=== PATIENT | female | born 1945 | race Asian ===

== ENCOUNTER 2019-03-19 10:33 | Emergency (ER) | payer MEDICARE, OTHER ==
--- NOTE | 2019-03-19 11:03 | ER Document Report ---
ED Medical Screen (RME) - General Chief Complaint: Low Blood Sugar Stated Complaint: BLOOD SUGAR ISSUES Time Seen by Provider: 03/19/19 10:52 Primary Care Provider: RAFIA EL NP [Primary Care Provider] - Follow up as needed Mode of Arrival: Ambulatory Information source: Patient TRAVEL OUTSIDE OF THE [place] IN LAST 30 DAYS: No - HPI Notes: 03/19/19 10:59 Patient is a 73 yr old female. type 1 diabetic on insulin therapy that presents to the emergency department for chief complaint of hypoglycemic episodes, states blood sugar this morning was 27, states that he gave her breakfast of eggs and sausage and she had eaten it. Patient states yesterday she had a blood sugar of 24, EMS was called, IV therapy was initiated, patient was given glucose which brought up her sugar to normal levels, patient was not seen in the ER after this episode. Has is not sure how many units she has headaches, states last night she ate a light lunch. Denies any fevers or chills, recent cough, dysuria abdominal pain, nausea vomiting or diarrhea. Patient has been a longtime type I diabetic, is unsure why her sugars have been stable lately ROS: Other than noted above, the 12 point review of systems was reviewed with the patient and were negative, all pertinent findings are included in the HPI. PHYSICAL EXAMINATION: Vital signs reviewed. GENERAL: Well-appearing, well-nourished and in no acute distress. LUNGS: No respiratory distress ABD: generalized abd pain Musculoskeletal: Normal range of motion NEUROLOGICAL: Normal speech PSYCH: Normal mood, normal affect. MDM: Patient seen and examined for rapid initial assessment. Vital signs reviewed. A comprehensive ED assessment and evaluation of the patient, analysis of test results and completion of the medical decision making process will be conducted by additional ED providers. *Note is created using voice recognition software and may contain spelling, s yntax or grammatical errors. - Related Data Allergies/Adverse Reactions: Penicillins Allergy (Verified 03/19/19 10:38) Past Medical History - Past Medical History Cardiac Medical History: Reports: Hx Hypertension Endocrine Medical History: Reports: Hx Diabetes Mellitus Type 2 Doctor's Discharge - Discharge Referrals: RAFIA EL NP [Primary Care Provider] - Follow up as needed
[2019-03-19] MEDS ORDERED: DEXTROSE 40% GEL 15 GM TUBE PO ONE (11:15)
[2019-03-19 11:32] LABS: HEMOGLOBIN 13.4 g/dL (12.0-15.5); MEAN CORPUSCULAR HEMOGLOBIN 31.1 pg (27.0-33.4); MEAN CORPUSCULAR HGB CONC 33.5 g/dL (32.0-36.0); MEAN CORPUSCULAR VOLUME 93 fl (80-97); PLATELET COUNT 256 10^3/uL (150-450); RED CELL DISTRIBUTION WIDTH 13.4 % (11.5-14.0); WHITE BLOOD COUNT 9.6 10^3/uL (4.0-10.5)
[2019-03-19 11:37] LABS: APPEARANCE,URINE SLIGHTLY-CLOUDY; BILIRUBIN,URINE NEGATIVE (NEGATIVE); COLOR,URINE YELLOW; GLUCOSE, URINE NEGATIVE (NEGATIVE); KETONES,URINE NEGATIVE (NEGATIVE); LEUKOCYTE ESTERASE,URINE MODERATE (NEGATIVE); NITRITE,URINE NEGATIVE (NEGATIVE); PROTEIN,URINE 100 mg/dL (NEGATIVE); UROBILINOGEN,URINE NEGATIVE mg/dL (<2.0)
[2019-03-19 11:51] LABS: ALANINE AMINOTRANSFERASE 42 U/L (9-52); ALKALINE PHOSPHATASE 93 U/L (38-126); ANION GAP 15 (5-19); ASPARTATE AMINO TRANSFERASE 53 U/L (14-36); BILIRUBIN,DIRECT 0.3 mg/dL (0.0-0.4); BILIRUBIN,TOTAL 0.5 mg/dL (0.2-1.3); BLOOD UREA NITROGEN 25 mg/dL (7-20); CALCIUM 9.8 mg/dL (8.4-10.2); CARBON DIOXIDE 25 mmol/L (22-30); CHLORIDE 104 mmol/L (98-107); CREATINE KINASE 147 U/L (30-135); POTASSIUM 5.3 mmol/L (3.6-5.0); SODIUM 143.6 mmol/L (137-145); TOTAL PROTEIN 9.4 g/dL (6.3-8.2)
[2019-03-19 11:56] LABS: GLUCOSE 61 mg/dL (75-110)
[2019-03-19 12:03] LABS: CREATINE KINASE MB 1.66 ng/mL (<4.55); TROPONIN I 0.013 ng/mL
--- NOTE | 2019-03-19 12:25 | RADIOLOGY REPORT (SQ) ---
EXAM DESCRIPTION: CHEST 2 VIEWS COMPLETED DATE/TIME: 03/19/2019 12:13 pm REASON FOR STUDY: hypoglycemia COMPARISON: CT angio chest 03/02/2016 Two-view chest 03/01/2016 EXAM PARAMETERS: NUMBER OF VIEWS: two views TECHNIQUE: Digital Frontal and Lateral radiographic views of the chest acquired. RADIATION DOSE: NA LIMITATIONS: none FINDINGS: LUNGS AND PLEURA: No opacities, masses or pneumothorax. No pleural effusion. MEDIASTINUM AND HILAR STRUCTURES: No masses or contour abnormalities. HEART AND VASCULAR STRUCTURES: Heart normal size. No evidence for failure. BONES: No acute findings. HARDWARE: None in the chest. OTHER: No other significant finding. IMPRESSION: NO ACUTE RADIOGRAPHIC FINDING IN THE CHEST. TECHNICAL DOCUMENTATION: JOB ID: [id number] Email Data Source- All Rights Reserved Reading location - IP/workstation name: [email or web address]
[2019-03-19] MEDS ORDERED: CEFTRIAXONE 1 GM/D5W RTU 1 GM/50 ML RTUPB IV ONE (12:32)
--- NOTE | 2019-03-19 13:57 | ER Document Report ---
ED Blood Sugar Problem - General Chief Complaint: Low Blood Sugar Stated Complaint: BLOOD SUGAR ISSUES Time Seen by Provider: 03/19/19 10:52 Primary Care Provider: RAFIA EL NP [Primary Care Provider] - Follow up as needed Mode of Arrival: Ambulatory Notes: Patient says that early yesterday morning the patient was gurgling in her sleep. She was unresponsive to his efforts to awaken her. He felt her left face drooped. EMS was called to the scene and found her blood sugar to be 22. She was given glucose and she was okay all day yesterday. Went to bed last night about 11 PM and she was fine, and her blood sugar was 120. Early this morning, patient's blood sugar was once again low at 27. Patient is an insulin- dependent diabetic taking 24 units of Lantus insulin at 6 PM every evening. She is also on Janumet and glimepiride 4 mg daily. Patient has not had any change in her medications recently. She has not had any change in her activity level recently. She has not been sick in any way. No UTI symptoms. No fevers or chills. Does not have any current symptoms. Is ambulatory without any problems. TRAVEL OUTSIDE OF THE [place] IN LAST 30 DAYS: No - Related Data Allergies/Adverse Reactions: Penicillins Allergy (Verified 03/19/19 10:38) Past Medical History - General Information source: Patient - Social History Smoking Status: Never Smoker Chew tobacco use (# tins/day): No Drug Abuse: None Family History: Reviewed & Not Pertinent Patient has suicidal ideation: No Patient has homicidal ideation: No - Past Medical History Cardiac Medical History: Reports: Hx Hypercholesterolemia, Hx Hypertension Endocrine Medical History: Reports: Hx Diabetes Mellitus Type 1 Review of Systems - Review of Systems Notes: CONSTITUTIONAL : Denies fever. CARDIOVASCULAR: Denies chest pain. RESPIRATORY: Denies cough, chest congestion, or shortness of breath. GASTROINTESTINAL: Denies abdominal pain or nausea, vomiting, or diarrhea. GENITOURINARY: Denies difficulty or painful urinating, urinary frequency, blood in urine. Physical Exam - Vital signs Vitals: Temp Pulse Resp BP Pulse Ox 97.5 F 52 L 16 172/48 H 97 03/19/19 10:48 03/19/19 10:48 03/19/19 10:48 03/19/19 10:48 03/19/19 10:48 Interpretation: Normal Notes: PHYSICAL EXAMINATION: GENERAL: Well-appearing, no acute distress. HEAD: Atraumatic, normocephalic. NECK: Normal range of motion, supple. LUNGS: Breath sounds clear and equal bilaterally. HEART: Regular rate and rhythm without murmurs heard. ABDOMEN: Soft, nontender. No guarding or rebound or masses felt. Course - Re-evaluation Re-evalutation: 03/20/19 18:45 Patient's urine looks suspicious for UTI, although she has no clinical symptoms. I am going to treat her empirically and culture her urine. 03/20/19 18:46 Patient remained stable throughout her stay in the department. She was able to ambulate without any problems. Went to the restroom. Acting completely normal for her, according to her . We discussed treating her hypoglycemic episodes by reducing her Lantus from the 24 units twice a day to 20 units twice a day. She is to continue her Janumet and Glimeperide. - Vital Signs Vital signs: Temp Pulse Resp BP Pulse Ox 98.2 F 83 16 139/55 H 97 03/19/19 14:18 03/19/19 14:18 03/19/19 14:18 03/19/19 14:18 03/19/19 14:18 - Laboratory Result Diagrams: 03/19/19 11:13 03/19/19 11:13 Laboratory results interpreted by me: 03/19/19 03/19/19 03/19/19 11:08 11:13 11:13 Potassium 5.3 H BUN 25 H Est GFR (Non-Af Amer) 50 L Glucose 61 L POC Glucose 60 L AST 53 H Creatine Kinase 147 H Total Protein 9.4 H Urine Protein 100 H Ur Leukocyte Esterase MODERATE H Discharge - Discharge Clinical Impression: Hypoglycemia, UTI (urinary tract infection) Condition: Good Disposition: HOME, SELF-CARE Additional Instructions: Hypoglycemia You have suffered an episode of hypoglycemia (low blood sugar). Typical symptoms of hypoglycemia are shaking, sweating, headache, and confusion. When severe, unconsciousness or seizure may occur. Hypoglycemia occurs when a person taking insulin or diabetes pills has a change in the amount of blood sugar available -- due to exercise, decreased food intake, or alcohol. Should you feel symptoms of hypoglycemia again, immediately take some form of sugar such as sweetened juice. As the reaction subsides, eat a complex carbohydrate such as bread. If possible, check your blood sugar using a chemical strip. If episodes are occurring without obvious explanation, contact your physician for further evaluation. URINARY TRACT INFECTION: Your evaluation indicates that you may have a urinary tract infection. This is due to germs growing in the bladder. This is a common problem. This infection usually responds quickly to antibiotics. Your antibiotic should be taken exactly as prescribed. Drink plenty of fluids -- three to four quarts a day. Occasionally, a bladder anesthetic will be prescribed to help stop the feeling of urgency until the antibiotic has a chance to clear the infection. This may cause your urine to be dark orange. Certain urine infections require a culture. If the doctor obtained a culture, the results will be back in two days. You should call to see if a change in treatment is needed. A repeat urinalysis after you finish treatment is often recommended. The physician will let you know if further testing is required. Call the doctor if you develop fever, chills, flank pain, inability to urinate, or blood in the urine. ANTIBIOTIC THERAPY: You have been given an antibiotic prescription. It's important that you take all the medication, unless instructed otherwise by your physician. Failure to complete the entire course can result in relapse of your condition. Common side effects of antibiotics include nausea, intestinal cramping, or diarrhea. Women may develop vaginal yeast infections, and babies can get yeast (thrush) in the mouth following the use of antibiotics. Contact your physician if you develop significant side effects from this medication. Allergy to this antibiotic can result in hives, wheezing, faintness, or itching. If symptoms of allergy occur, stop the medication and call the doctor. NITROFURANTOIN (MACRODANTIN, MACROBID): You have received a prescription for nitrofurantoin (Macrodantin). This antibiotic is used for urinary tract infections. Women who are or nursing should notify the physician before taking this medicine. If you have ever had a problem caused by this medication in the past, be sure the physician is aware of it. Common side effects of this medicine include nausea, vomiting, or decreased appetite. Notify your physician if these side effects become severe. Immediately stop this medicine and call the physician if you develop cough, shortness of breath, chest pain, weakness, jaundice (yellow color of the skin and whites of the eyes), or a skin rash. FOLLOW-UP CARE: If you have been referred to a physician for follow-up care, call the physicians office for an appointment as you were instructed or within the next two days. If you experience worsening or a significant change in your symptoms, notify the physician immediately or return to the Emergency Department at any time for re-evaluation. Decrease your Lantus dose to 20 units at 6 PM. You may adjust your Lantus insulin up or down depending on what your fingerstick blood sugars are showing. Fill the prescription for the antibiotic and take it twice a day until finished. Call Ms. Melendez's office Sunday for further instructions regarding your insulin. Prescriptions: Nitrofurantoin/Nitrofuran Mac [Macrobid 100 mg Capsule] 1 tab PO BID #14 capsule Referrals: RAFIA EL NP [Primary Care Provider] - Follow up as needed
[2019-03-19 14:19] VITALS: BP 139/55
--- NOTE | 2019-03-19 17:53 | EKG REPORT ---
SEVERITY:- NORMAL ECG - SINUS RHYTHM : Confirmed by: Mary De 19-Mar-2019 17:52:38
== END 2019-03-19 14:19 | disposition home or self-care (01) ==
LOC: ER 10:33
DX: E10.649 Type 1 diabetes mellitus with hypoglycemia without coma (principal); N39.0 Urinary tract infection, site not specified; I10 Essential (primary) hypertension; Z79.4 Long term (current) use of insulin
CPT/HCPCS: 93005; 99285; 36415; 87086; 82553; 82962; 82550; 85027; 87088; 80053; 81001; 84484; 87186; 71046; 93010; J0696

== ENCOUNTER 2020-02-24 05:57 | Emergency (ER) | payer MEDICARE, OTHER ==
[2020-02-24] MEDS ORDERED: IPRATROPIUM/ALBUTEROL 0.5-2.5 MG/3 ML AMPUL NEB ONE ×2 (06:06→06:10)
[2020-02-24] MEDS ORDERED: METHYLPREDNISOLONE INJ 125 MG/2 ML SDV ONE (06:07)
--- NOTE | 2020-02-24 06:10 | ER Document Report ---
ED General - General Chief Complaint: Chest Pain Stated Complaint: SHORT OF BREATH Time Seen by Provider: 02/24/20 06:09 Primary Care Provider: RAFIA EL NP [Primary Care Provider] - Follow up as needed Mode of Arrival: Ambulatory Information source: Patient TRAVEL OUTSIDE OF THE [place] IN LAST 30 DAYS: No - HPI Onset: Other - over the last 5 days Onset/Duration: Gradual Quality of pain: Pressure - in chest Severity: Moderate Pain Level: 2 Associated symptoms: Chest pain, Nonproductive cough, Diarrhea - this morning, Shortness of breath Exacerbated by: Other - exertion Relieved by: Remaining still Similar symptoms previously: No Recently seen / treated by doctor: No Notes: 74 year old female with a history of HTN, HLD, DM here in the ER for chest pain and shortness of breath for the last 5 days. The patient denies recent fevers, chills, sweats, nausea, vomiting, but she did have some diarrhea this morning. The patient has never felt like this before. The patient denies a history of any lung problems and she has never smoked. Patient denies known sick contacts or recent travel. The patient was noted to be wheezing on ER arrival so albuterol was administered before I evaluated the patient. Patient says she felt better after having albuterol and she could breath better. - Related Data Allergies/Adverse Reactions: Penicillins Allergy (Verified 03/19/19 10:38) Past Medical History - General Information source: Patient - Social History Smoking Status: Never Smoker Frequency of alcohol use: None Drug Abuse: None Lives with: Spouse/Significant other Family History: Reviewed & Not Pertinent - Past Medical History Cardiac Medical History: Reports: Hx Hypercholesterolemia, Hx Hypertension Endocrine Medical History: Reports: Hx Diabetes Mellitus Type 1, Hx Diabetes Mellitus Type 2 Renal/ Medical History: Denies: Hx Peritoneal Dialysis Review of Systems - Review of Systems Constitutional: No symptoms reported EENT: No symptoms reported Cardiovascular: Chest pain Respiratory: Cough, Short of breath Gastrointestinal: Diarrhea Genitourinary: No symptoms reported Female Genitourinary: No symptoms reported Musculoskeletal: No symptoms reported Skin: No symptoms reported Hematologic/Lymphatic: No symptoms reported Neurological/Psychological: No symptoms reported -: Yes All other systems reviewed and negative Physical Exam - Vital signs Vitals: Pulse Ox 92 02/24/20 06:06 - Notes Notes: GENERAL: Well-appearing, well-nourished and in no acute distress. HEAD: Atraumatic, normocephalic. EYES: Pupils equal round and reactive to light, extraocular movements intact, sclera anicteric, conjunctiva are normal. ENT: External ears normal, nares patent, oropharynx clear without exudates. Moist mucous membranes. NECK: Normal range of motion, supple without lymphadenopathy or JVD. LUNGS: Patient with mild labored breathing. Breath sounds clear to auscultation bilaterally and equal. No rhonchi. HEART: Tachycardic with regular rhythm without murmurs, rubs or gallops. ABDOMEN: Soft, nontender, normoactive bowel sounds. No guarding, no rebound. N o masses appreciated. EXTREMITIES: Normal range of motion, no pitting or edema. No clubbing or cyan osis. NEUROLOGICAL: Cranial nerves II through XII grossly intact. Normal speech, normal gait. PSYCH: Normal mood, normal affect. SKIN: Warm, Dry, normal turgor, no rashes or lesions noted. Course - Re-evaluation Re-evalutation: 02/24/20 06:39 The patient is hypoxic with new onset of shortness of breath and chest pain. Chest Xray shows mild diffuse disease with no focal infiltrates. Patient is afebrile here in the ER and she denies being febrile at home. Patient has been having chest pain. Will test for COVID19 but will also need to rule out ACS, CHF, PE. Patient will need admission due to her hypoxia regardless of the cause. 02/24/20 07:29 The patient seems to be having an NSTEMI as her Trop is 0.3 and her BNP is 1500 with a corresponding chest Xray consistent with pulmonary edema. Patient is feeling much better after a nebulizer and she is now on nasal canula O2 and has only 2/10 chest pain. Will start patient on Heparin and administer aspirin and IV Lasix. Patient sees Dr. Bonilla of Cardiology. Patient would prefer to be transferred to [facility] since her PCP and affiliated with [facility]. 02/24/20 08:20 The patient was accepted by Dr. Latif at [facility]. Dr. Poole of Cardiology was also spoken to regarding the patient. - Vital Signs Vital signs: Temp Pulse Resp BP Pulse Ox 97.7 F 22 H 151/79 H 96 02/24/20 06:18 02/24/20 07:30 02/24/20 07:30 02/24/20 07:01 - Laboratory Result Diagrams: 02/24/20 06:25 02/24/20 06:25 Laboratory results interpreted by me: 02/24/20 02/24/20 06:25 06:25 BUN 23 H Est GFR (MDRD) Non-Af 58 L Glucose 204 H NT-Pro-B Natriuret Pep 1500 H - Diagnostic Test Radiology reviewed: Image reviewed, Reports reviewed - EKG Interpretation by Me EKG shows normal: Sinus rhythm, [place], Intervals, QRS Complexes Rate: Tachycardia Additional EKG results interpreted by me: 02/24/20 06:26 q waves in V1-V3 Discharge - Discharge Clinical Impression: NSTEMI (non-ST elevated myocardial infarction) Chest pain Qualifiers: Chest pain type: unspecified Qualified Code(s): R07.9 - Chest pain, unspecified Condition: Fair Disposition: [facility] Admitting Provider: Dr. Latif Referrals: RAFIA EL NP [Primary Care Provider] - Follow up as needed
[2020-02-24 06:38] LABS: ABSOLUTE BASOPHILS # (AUTO) 0.1 10^3/uL (0.0-0.2); ABSOLUTE EOSINOPHILS # (AUTO) 0.2 10^3/uL (0.0-0.6); ABSOLUTE LYMPHOCYTES (AUTO) 2.3 10^3/uL (0.5-4.7); ABSOLUTE MONOCYTES (AUTO) 0.4 10^3/uL (0.1-1.4); ABSOLUTE NEUT (AUTO) 5.9 10^3/uL (1.7-8.2); EOSINOPHILS % (AUTO) 2.6 % (0-6); HEMATOCRIT 40.2 % (36.0-47.0); HEMOGLOBIN 13.3 g/dL (12.0-15.5); LYMPHOCYTES % (AUTO) 25.9 % (13-45); MEAN CORPUSCULAR HEMOGLOBIN 30.7 pg (27.0-33.4); MEAN CORPUSCULAR HGB CONC 33.2 g/dL (32.0-36.0); MEAN CORPUSCULAR VOLUME 93 fl (80-97); MONOCYTES % (AUTO) 4.2 % (3-13); PLATELET COUNT 203 10^3/uL (150-450); RED BLOOD COUNT 4.35 10^6/uL (3.72-5.28); RED CELL DISTRIBUTION WIDTH 13.9 % (11.5-14.0); SEGMENTED NEUTROPHILS % (AUTO) 66.3 % (42-78); TOTAL CELLS COUNTED % (AUTO) 100 %; WHITE BLOOD COUNT 8.9 10^3/uL (4.0-10.5)
--- NOTE | 2020-02-24 06:54 | RADIOLOGY REPORT (SQ) ---
EXAM DESCRIPTION: XR CHEST 1 VIEW COMPLETED DATE/TME: 02/24/2020 06:05 CLINICAL HISTORY: 74 years, Female, sob COMPARISON: 03/01/2016 chest NUMBER OF VIEWS: 1 TECHNIQUE: Portable chest LIMITATIONS: None. FINDINGS: Heart size is normal. Coarsened interstitial changes are present bilaterally. Mild elevation of the right hemidiaphragm. Patchy right perihilar airspace opacity. No pneumothorax IMPRESSION: Coarse interstitial changes bilaterally with superimposed right perihilar airspace opacity. Findings may reflect pulmonary edema and/or pneumonitis copyright 2011 [employer]- All Rights Reserved
[2020-02-24 07:01] LABS: ALBUMIN 4.6 g/dL (3.5-5.0); ALKALINE PHOSPHATASE 78 U/L (38-126); ANION GAP 14 (5-19); ASPARTATE AMINO TRANSFERASE 29 U/L (14-36); BILIRUBIN,TOTAL 0.5 mg/dL (0.2-1.3); BLOOD UREA NITROGEN 23 mg/dL (7-20); CALCIUM 9.8 mg/dL (8.4-10.2); CARBON DIOXIDE 23 mmol/L (22-30); CHLORIDE 103 mmol/L (98-107); GLUCOSE 204 mg/dL (75-110); POTASSIUM 4.6 mmol/L (3.6-5.0)
[2020-02-24 07:17] LABS: TROPONIN I 0.327 ng/mL
[2020-02-24] MEDS ORDERED: ASPIRIN 81 MG TABLET, CHEWABLE PO ONE (07:20)
[2020-02-24] MEDS ORDERED: HEPARIN SODIUM,PORCINE/D5W 25,000 UNIT/250 ML RTUINJ IV PRN (07:21)
[2020-02-24] MEDS ORDERED: HEPARIN SOD (PORCINE) 1,000 UNIT/ML 10 ML VIAL IV ONE (07:21)
[2020-02-24] MEDS ORDERED: FUROSEMIDE INJ/PF 20 MG/2 ML SDV IV ONE (07:30)
[2020-02-24 07:39] LABS: INTERNATIONAL RATION (INR) 0.93; PROTHROMBIN TIME 12.4 SEC (11.4-15.4)
[2020-02-24 07:40] LABS: PARTIAL THROMBOPLASTIN TIME 25.4 SEC (23.5-35.8)
[2020-02-24 08:40] LABS: APPEARANCE,URINE CLEAR; BILIRUBIN,URINE NEGATIVE (NEGATIVE); COLOR,URINE STRAW; GLUCOSE, URINE 50 mg/dL (NEGATIVE); KETONES,URINE NEGATIVE (NEGATIVE); LEUKOCYTE ESTERASE,URINE NEGATIVE (NEGATIVE); NITRITE,URINE NEGATIVE (NEGATIVE); PROTEIN,URINE 100 mg/dL (NEGATIVE); URINE SPECIFIC GRAVITY 1.011; UROBILINOGEN,URINE NEGATIVE mg/dL (<2.0)
--- NOTE | 2020-02-24 09:30 | EKG REPORT ---
SEVERITY:- ABNORMAL ECG - SINUS TACHYCARDIA CONSIDER ANTEROSEPTAL INFARCT REPOL ABNRM SUGGESTS ISCHEMIA, LATERAL LEADS : Confirmed by: Olena Ashford MD 24-Feb-2020 09:29:26
--- NOTE | 2020-02-24 09:30 | EKG REPORT ---
SEVERITY:- ABNORMAL ECG - SINUS TACHYCARDIA PAIRED VENTRICULAR PREMATURE COMPLEXES PROBABLE LEFT ATRIAL ABNORMALITY CONSIDER ANTEROSEPTAL INFARCT REPOL ABNRM SUGGESTS ISCHEMIA, LATERAL LEADS : Confirmed by: Olena Ashford MD 24-Feb-2020 09:29:37
[2020-02-24] MEDS ORDERED: HEPARIN SOD (PORCINE) 1,000 UNIT/ML 10 ML VIAL IV PRN (10:21)
[2020-02-24 11:12] VITALS: BP 124/78
== END 2020-02-24 11:30 | disposition short-term general hospital (02) ==
LOC: ER 05:57
DX: I21.4 Non-ST elevation (NSTEMI) myocardial infarction (principal); R07.9 Chest pain, unspecified; R05 Cough; R19.7 Diarrhea, unspecified; R06.02 Shortness of breath; R06.2 Wheezing; I10 Essential (primary) hypertension; E11.9 Type 2 diabetes mellitus without complications; Z88.0 Allergy status to penicillin; Z20.828 Contact with and (suspected) exposure to other viral communicable diseases
CPT/HCPCS: 93005; 96376; 99285; 96375; 96365; 96366; 36415; 83735; 85025; 85610; 85730; 80053; 81001; 84484; 83880; 71045; 93010; U0003; J1644 ×2; A9270 ×2; J1940; C9803; 87635; J7620

== ENCOUNTER 2020-03-14 12:25 | Emergency (ER) | payer MEDICARE, OTHER ==
--- NOTE | 2020-03-14 13:26 | RADIOLOGY REPORT (SQ) ---
EXAM DESCRIPTION: CHEST SINGLE VIEW IMAGES COMPLETED DATE/TIME: 03/14/2020 1:15 pm REASON FOR STUDY: bed 4 chest pain COMPARISON: Chest x-ray 02/24/2020, 03/19/2019. EXAM PARAMETERS: NUMBER OF VIEWS: One view. TECHNIQUE: Single frontal radiographic view of the chest acquired. RADIATION DOSE: NA LIMITATIONS: None. FINDINGS: LUNGS AND PLEURA: There are small bilateral pleural effusions with mild bibasilar atelecta sis. No pneumothorax. There is subsegmental atelectasis at the left perihilar region. MEDIASTINUM AND HILAR STRUCTURES: No masses. Contour normal. HEART AND VASCULAR STRUCTURES: The heart is mildly enlarged. There is no overt vascular congestion. Status post open heart surgery. BONES: No acute findings. HARDWARE: Mediastinotomy sternotomy wires are present. Surgical clips at the right upper quadrant. IMPRESSION: Mild cardiomegaly. Small bilateral pleural effusions with mild bibasilar atelectasis. Subsegmental atelectasis at the left perihilar region. TECHNICAL DOCUMENTATION: JOB ID: [id number] [employer]- All Rights Reserved Reading location - IP/workstation name: [email or web address]
[2020-03-14 13:51] LABS: ABSOLUTE BASOPHILS # (AUTO) 0.1 10^3/uL (0.0-0.2); ABSOLUTE EOSINOPHILS # (AUTO) 0.2 10^3/uL (0.0-0.6); ABSOLUTE LYMPHOCYTES (AUTO) 1.1 10^3/uL (0.5-4.7); ABSOLUTE MONOCYTES (AUTO) 0.5 10^3/uL (0.1-1.4); ABSOLUTE NEUT (AUTO) 8.6 10^3/uL (1.7-8.2); BASOPHILS % (AUTO) 1.3 % (0-2); EOSINOPHILS % (AUTO) 1.9 % (0-6); HEMATOCRIT 30.4 % (36.0-47.0); HEMOGLOBIN 10.2 g/dL (12.0-15.5); LYMPHOCYTES % (AUTO) 10.3 % (13-45); MEAN CORPUSCULAR HEMOGLOBIN 31.4 pg (27.0-33.4); MEAN CORPUSCULAR HGB CONC 33.7 g/dL (32.0-36.0); MEAN CORPUSCULAR VOLUME 93 fl (80-97); MONOCYTES % (AUTO) 4.8 % (3-13); PLATELET COUNT 387 10^3/uL (150-450); RED BLOOD COUNT 3.26 10^6/uL (3.72-5.28); SEGMENTED NEUTROPHILS % (AUTO) 81.7 % (42-78); TOTAL CELLS COUNTED % (AUTO) 100 %; WHITE BLOOD COUNT 10.5 10^3/uL (4.0-10.5)
[2020-03-14 14:04] LABS: ALBUMIN 3.9 g/dL (3.5-5.0); ALKALINE PHOSPHATASE 78 U/L (38-126); ANION GAP 10 (5-19); ASPARTATE AMINO TRANSFERASE 32 U/L (14-36); BILIRUBIN,TOTAL 0.6 mg/dL (0.2-1.3); BLOOD UREA NITROGEN 14 mg/dL (7-20); CALCIUM 9.8 mg/dL (8.4-10.2); CARBON DIOXIDE 26 mmol/L (22-30); CHLORIDE 101 mmol/L (98-107); CREATINE KINASE 85 U/L (30-135); GLUCOSE 86 mg/dL (75-110); POTASSIUM 4.9 mmol/L (3.6-5.0); TOTAL PROTEIN 7.3 g/dL (6.3-8.2)
[2020-03-14 14:11] LABS: APPEARANCE,URINE CLEAR; BILIRUBIN,URINE NEGATIVE (NEGATIVE); COLOR,URINE STRAW; GLUCOSE, URINE NEGATIVE (NEGATIVE); KETONES,URINE NEGATIVE (NEGATIVE); LEUKOCYTE ESTERASE,URINE NEGATIVE (NEGATIVE); NITRITE,URINE NEGATIVE (NEGATIVE); PROTEIN,URINE NEGATIVE (NEGATIVE); URINE SPECIFIC GRAVITY 1.004; UROBILINOGEN,URINE NEGATIVE mg/dL (<2.0)
[2020-03-14 14:16] LABS: CREATINE KINASE MB 2.16 ng/mL (<4.55)
[2020-03-14 14:21] LABS: TROPONIN I 0.083 ng/mL
[2020-03-14] MEDS ORDERED: METOPROLOL TARTRATE PF/INJ 5 MG/5 ML SDV IV ONE ×2 (16:08→18:22)
--- NOTE | 2020-03-14 18:31 | EKG REPORT ---
SEVERITY:- ABNORMAL ECG - SINUS TACHYCARDIA BORDERLINE R WAVE PROGRESSION, ANTERIOR LEADS NONSPECIFIC T ABNORMALITIES, LATERAL LEADS CONSIDER ANTERIOR KS OLD : Confirmed by: Mary De 14-Mar-2020 18:30:32
[2020-03-14] MEDS ORDERED: METOPROLOL SUCCINATE 25 MG TAB.SR.24H PO ONE (19:43)
[2020-03-14 20:01] VITALS: BP 160/78
--- NOTE | 2020-03-16 10:41 | ER Document Report ---
Entered by RICKY FELIPE SCRIBE 03/14/20 1533 Acting as scribe for:NUPUR KELLY MD ED General - General Chief Complaint: Palpitations Stated Complaint: PALPITATIONS Time Seen by Provider: 03/14/20 15:20 Primary Care Provider: RAFIA EL NP [Primary Care Provider] - Follow up as needed Information source: Patient Notes: This 74 year old female patient presents to the emergency department today with complaints of a fast heart rhythm. Patient states she woke up this morning and when she got out of bed, it felt like her hear was racing. Patient states she w as short of breath when this occurred and denies any chest pain. Patient states she feels fine now and reports a history of a NSTEMI x19 days ago. TRAVEL OUTSIDE OF THE [place] IN LAST 30 DAYS: No - Related Data Allergies/Adverse Reactions: Penicillins Allergy (Verified 03/14/20 13:02) Past Medical History - General Information source: Patient - Social History Smoking Status: Never Smoker Cigarette use (# per day): No Chew tobacco use (# tins/day): No Frequency of alcohol use: None Drug Abuse: None Family History: Reviewed & Not Pertinent - Past Medical History Cardiac Medical History: Reports: Hx Hypercholesterolemia, Hx Hypertension, Other - NSTEMI 2019 Endocrine Medical History: Reports: Hx Diabetes Mellitus Type 1, Hx Diabetes Mellitus Type 2 Past Surgical History: Reports: Hx Cholecystectomy Review of Systems - Review of Systems Constitutional: No symptoms reported EENT: No symptoms reported Cardiovascular: See HPI, Heart racing. denies: Chest pain Respiratory: See HPI, Short of breath Gastrointestinal: No symptoms reported Genitourinary: No symptoms reported Female Genitourinary: No symptoms reported Musculoskeletal: No symptoms reported Skin: No symptoms reported Hematologic/Lymphatic: No symptoms reported Neurological/Psychological: No symptoms reported -: Yes All other systems reviewed and negative Physical Exam - Vital signs Vitals: Temp Pulse Resp Pulse Ox 98.5 F 116 H 16 98 03/14/20 12:36 03/14/20 12:36 03/14/20 12:36 03/14/20 12:36 - General General appearance: Appears well, Alert - HEENT Head: Normocephalic, Atraumatic Eyes: Normal Pupils: PERRL - Respiratory Respiratory status: No respiratory distress Chest status: Nontender Breath sounds: Normal Chest palpation: Normal Notes: Scar from healed incision on sternum. - Cardiovascular Rhythm: Tachycardia Heart sounds: Normal auscultation Murmur: No - Abdominal Inspection: Normal - Soft Distension: No distension Bowel sounds: Normal Tenderness: Nontender - Extremities General upper extremity: Normal inspection. No: Edema General lower extremity: Normal inspection, Edema - bilateral L>R, Other - LLE veins harvested - Neurological Neuro grossly intact: Yes Cognition: Normal Orientation: AAOx4 Speech: Normal - Psychological Associated symptoms: Normal affect, Normal mood - Skin Skin Temperature: Warm Skin Moisture: Dry Skin Color: Normal Course - Re-evaluation Re-evalutation: 03/14/20 19:45 The patient has been quite tachycardic today. She was given Lopressor 2.5 mg IV twice to help slow her rate. Eventually I learned from the patient that her forgot to give her her Lopressor this morning. She states all the other medication she is supposed to take she did receive. At this time her heart rate is 104, she states she feels much better and is ready to go home. Her room air pulse oximetry reading is 99%. I did order her missed dose of Lopressor succinate 25mg to take now before she is discharged. - Vital Signs Vital signs: Temp Pulse Resp BP Pulse Ox 98.5 F 116 H 15 159/77 H 99 03/14/20 12:36 03/14/20 12:36 03/14/20 16:01 03/14/20 16:00 03/14/20 16:01 - Laboratory Result Diagrams: 03/14/20 13:20 03/14/20 13:20 Laboratory results interpreted by me: 03/14/20 03/14/20 03/14/20 13:20 13:20 13:20 RBC 3.26 L Hgb 10.2 L Hct 30.4 L RDW 15.0 H Lymph % (Auto) 10.3 L Absolute Neuts (auto) 8.6 H Seg Neutrophils % 81.7 H Sodium 136.5 L NT-Pro-B Natriuret Pep 3820 H - Diagnostic Test Radiology reviewed: Image reviewed, Reports reviewed - Chest x-ray shows mild cardiomegaly with small bilateral pleural effusion with mild bibasilar atelectasis. 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 - EKG Interpretation by Me EKG shows normal: Sinus rhythm, [place], Intervals. abnormal: QRS Complexes - Borderline R wave progression in the anterior leads, ST-T Waves - Nonspecific lateral T abnormalities Rate: Tachycardia - 120 Discharge - Discharge Clinical Impression: Palpitations, Sinus tachycardia, Bilateral pleural effusion Condition: Stable Disposition: HOME, SELF-CARE Additional Instructions: Palpitations (Irregular/Rapid Heartrate) Irregular or rapid heartbeat is called "palpitation." To diagnose the cause of palpitation, we have to "catch it in the act" with an EKG. Sinus Tachycardia: This is a rapid (but NORMAL) rhythm that can be due to fever, pain, anxiety, lack of sleep, over-exertion, or drugs. Cold medications, caffeine, and diet pills are particularly likely to cause tachycardia. Usually, all that's required is rest, reassurance, and avoiding caffeine, alcohol, nicotine, and unnecessary medicines. Paroxysmal Atrial Tachycardia (PAT): This abnormally rapid heartbeat is caused by a "short circuit" in the electrical system of the heart. It is not dangerous, unless other heart disease is present. These attacks of PAT may occur occasionally for years. Medication is available for treatment. Paroxysmal Atrial Fibrillation or Atrial Flutter: This is irregular electrical activity in the upper heart chamber. These abnormal rhythms often occur with valve disease or in hearts damaged by hardening of the arteries. These rhythms usually require further testing, for example a cardiac echo. Premature Beats: Extra beats occur more commonly after caffeine, nicotine, alcohol, cold pills, diet pills. Emotional stress or fatigue also provoke them. Extra beats are only dangerous when heart disease is present. They usually need no treatment. If they're frequent, or if evidence of heart disease develops, medication can be given to suppress them. If we were unable to "catch" the palpitations on EKG, you should try to get an EKG immediately if the symptoms begin again. Contact the physician at once if you develop persistent lightheadedness, shortness of breath, chest pain, or swelling of the ankles. The fast heart rate you were noticing today, was likely due to missing your metoprolol dose. You were given the metoprolol dose you missed at home here in the emergency room. Be sure not to miss any of your regular medications. Your chest x-ray today showed some pleural effusions which is fluid between the long and the diaphragm. This is most likely normal postoperative effusions which will go away on their own with time. Follow-up with your primary care provider tomorrow for recheck if not feeling completely normal. Return to the emergency room if you notice your heart rate is beating fast again like it was earlier today. RETURN TO THE EMERGENCY ROOM IF ANY NEW OR WORSENING SYMPTOMS. Referrals: RAFIA EL, TARE WEIGHER [Primary Care Provider] - Follow up as needed I personally performed the services described in the documentation, reviewed and edited the documentation which was dictated to the scribe in my presence, and it accurately records my words and actions.
== END 2020-03-14 20:30 | disposition home or self-care (01) ==
LOC: ER 12:25
DX: J90 Pleural effusion, not elsewhere classified (principal); R00.0 Tachycardia, unspecified; R00.2 Palpitations; Z88.0 Allergy status to penicillin; I10 Essential (primary) hypertension; E11.9 Type 2 diabetes mellitus without complications
CPT/HCPCS: 93005; 96376; 99285; 96374; 36415; 82553; 82550; 85025; 80053; 81001; 84484; 83880; 71045; 93010; J3490; A9270